=== PATIENT | female | born 2000 | race Caucasian/White ===

== ENCOUNTER 2022-06-25 21:16 | Inpatient (IN) | payer OTHER, SELFPAY ==
[2022-06-25 23:30] VITALS: BP 132/82; PULSE 82; TEMP 36.7; O2SAT 96
--- NOTE | 2022-06-26 00:46 | PC.ADMIT ---
pt is a 22 year old female admitted to [facility] with a suicide attempt with pills with increased depression and AH. pt denies symptoms except for SI. during admission, pt was thought blocking and she had trouble answering questions. pt said she felt dizzy until she ate a sandwich and drank water. pt had normal vital signs. pt was social in kitchen with a few peers. pt reported no substance abuse, but according to [facility] packet, pt used THC. pt is calm and cooperative.
[2022-06-26 09:26] LABS: Estimated Average Glucose 140 mg/dL; Hemoglobin A1c % 6.5 %
[2022-06-26 09:28] LABS: Cholesterol 192 mg/dL; HDL Cholesterol 57 mg/dL; LDL Cholesterol Calculated 113 mg/dl; Triglycerides 112 mg/dL
[2022-06-26 10:15] VITALS: BP 111/71; PULSE 64; RESP 6; TEMP 36.8; O2SAT 97
--- NOTE | 2022-06-26 13:04 | HO.PM.IMCN ---
History of Present Illness Data of Consult Service Date: 06/26/22 Requesting physician: Marcelo Nuno Primary Care Provider: Unknown Physician HPI Reason for consult: medical H&P 22 year old female with history of depression and anxiety admitted to psychiatry with consult placed to hospital service for medical H&P. The patient denies any chronic medical illness. However, A1c on arrival is 6.5%, consistent with newly diagnosed type 2 diabetes. She does endorse some positional lightheadedness. has been drinking plenty of water. No other complaints. Review of Systems Review of Systems: General: No fevers, malaise, unintentional weight loss HEENT: No blurred vision, diplopia Cardiovascular: No chest pain, palpitations, or leg edema Respiratory: No shortness of breath, wheezing, cough GI: No abdominal pain, nausea, vomiting, diarrhea, constipation, melena, hematochezia : No dysuria, hematuria, increased urinary frequency, decreased urinary output Endo: No polyuria or polydipsia MSK: No myalgia, back pain Neuro: +positional lightheadedness. No headaches, weakness, paresthesias Skin: No rashes or lesions [facility] Medical History (Updated 06/26/22 @ 13:09 by COLLEEN Hernandez) Anxiety Depression Type 2 diabetes mellitus Social History Household Members: Family Housing: Apartment Patient Tobacco Use Status: Never used Tobacco Use of substances other than those prescribed or required for medical reasons: Yes Substance Use Type: Marijuana Substance Use Frequency: Daily Last Used Substance: Just Prior to Admission Currently Displaying Signs/Symptoms of Drug Intoxication Withdrawal: No Have you been hit, kicked, punched, or otherwise hurt by someone within the past year? If so, by whom?: No Do you feel safe in your current relationship?: No Current Relationship Is there a partner from a previous relationship who is making you feel unsafe now?: No Are you made to feel afraid or neglected: No Advance Directives: No Advance Directives Information Provided: No Do you have thoughts of harming others: None Do you have a plan to hurt others: No Plan Recently lost weight without trying: No How much weight loss: Not applicable Eating poorly because of decreased appetite: No Nutrition screen score: 0 Nutrition Risks: No Nutritional Risk Patient : No : No Poor oral hygiene: No Meds Allergies Allergy/AdvReac Type Severity Reaction Status Date / Time No Known Allergies Allergy Verified 06/25/22 23:25 Active Medications: Current Medications Acetaminophen (Acetaminophen 325 Mg Tablet) 650 mg PO Q6H PRN PRN Reason: Headache/Pain Mild Scale (1-3) Al Hydroxide/Mg Hydroxide (Magnesium Hydrox/Alum Hydrox 30 Ml Oral.Susp) 30 ml PO Q6H PRN PRN Reason: Heartburn/Nausea Hydroxyzine HCl (Hydroxyzine Hcl 25 Mg Tablet) 25 mg PO Q6H PRN PRN Reason: Anxiety Magnesium Hydroxide (Milk Of Magnesia 30 Ml Oral.Susp) 30 ml PO DAILY PRN PRN Reason: Constipation Nicotine (Nicotine 21 Mg Patch.Td24) 21 mg TRANSDERMA DAILY PRN PRN Reason: smoking cessation Nicotine Polacrilex (Nicotine Polacrilex 2 Mg Gum) 4 mg BUCCAL Q2H PRN PRN Reason: Nicotine Cravings Trazodone HCl (Trazodone Hcl 50 Mg Tablet) 50 mg PO BEDTIME PRN PRN Reason: Insomnia Physical Exam Vital Signs and Narrative: Vital Signs: Last Vital Signs Temp 98.2 F 06/26/22 10:15 Pulse 64 06/26/22 10:15 Resp 6 L 06/26/22 10:15 BP 111/71 06/26/22 10:15 Pulse Ox 97 06/26/22 10:15 O2 Del Method 06/26/22 10:15 Constitutional - Awake and Alert, No apparent distress Eyes - PERRLA, EOMI Cardiovascular - S1S2, RRR, No edema Respiratory - Normal lung expansion, Normal respiratory effort, No respiratory distress, CTA bilaterally Gastrointestinal - NT / ND; +BS; No rebound or guarding Extremities - no calf tenderness bilaterally, no swelling Musculoskeletal - Normal inspection, normal ROM Skin - Warm/Dry Neurological - Alert & oriented x3, CN II-XII in tact, 5/5 strength BUE and BLE Psychological - Appropriate affect Results Labs Labs: Laboratory Results - last 24 hr 06/26/22 06/26/22 08:22 08:22 Estimat Average Glucose 140 Hemoglobin A1c % 6.5 Triglycerides 112 Cholesterol 192 LDL Cholesterol, Calc 113 HDL Cholesterol 57 Assessment and Plan (1) Routine medical exam: Status: Acute (2) Type 2 diabetes mellitus: Status: Acute Plan 22 year old female with history of depression and anxiety admitted to psychiatry with consult placed to hospital service for medical H&P. #Depression/anxiety -Plan per psychiatry #Newly diagnosed type 2 diabetes- controlled with A1c 6.5% -POC glucose -Diabetic diet -Recommend diabetes education -Would recommend lifestyle education and modification prior to initiating any oral DM meds -Can use humalog on sliding scale with meals if needed for hyperglycemia -Needs close outpt follow up with pcp #Positional lightheadedness -no nystagmus or focal neuro deficits -Recommend orthostatic VS -Encourage adequate fluids intake and manage glucose levels as above #Obesity -Recommend weight loss efforts Thank you for allowing me to participate in this consult. Signing off at this time. Please do not hesitate to call for further questions. Time Spent With Patient Time: Total time managing care of this patient today ____ minutes.
[2022-06-26 16:19] VITALS: BP 95/54; PULSE 62; TEMP 36.6; O2SAT 96
[2022-06-26] MEDS: hydrOXYzine HCL 25 MG TABLET PO (17:37)
[2022-06-26 17:56] LABS: Glucose, Whole Blood 171 mg/dL (60-115)
[2022-06-26] MEDS: Insulin Lispro 100 UNIT/ML 3 ML VIAL SUBCUT (17:58)
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
[2022-06-26 21:35] LABS: Glucose, Whole Blood 148 mg/dL (60-115)
[2022-06-27 07:00] VITALS: BMI 36.8
[2022-06-27 08:34] LABS: Glucose, Whole Blood 126 mg/dL (60-115)
[2022-06-27 09:50] VITALS: BP 113/69; PULSE 66; RESP 16; TEMP 36.9; O2SAT 97
[2022-06-27 13:23] LABS: Glucose, Whole Blood 128 mg/dL (60-115)
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
[2022-06-27 17:39] LABS: Glucose, Whole Blood 138 mg/dL (60-115)
[2022-06-27] MEDS: hydrOXYzine HCL 25 MG TABLET PO (17:43)
[2022-06-27 18:00] VITALS: BP 114/78; PULSE 61; TEMP 36.1; O2SAT 97
[2022-06-27] MEDS: Sertraline HCL 50 MG TABLET PO (21:31)
[2022-06-27 21:50] LABS: Glucose, Whole Blood 143 mg/dL (60-115)
[2022-06-28 08:02] LABS: Glucose, Whole Blood 131 mg/dL (60-115)
[2022-06-28] MEDS: ARIPiprazole 5 MG TABLET PO (08:21)
[2022-06-28 08:23] VITALS: BP 119/72; PULSE 57; RESP 18
[2022-06-28 12:11] LABS: Glucose, Whole Blood 141 mg/dL (60-115)
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
[2022-06-28] MEDS: Magnesium Hydrox/Alum Hydrox 30 ML ORAL.SUSP PO (15:03)
[2022-06-28 16:34] LABS: Glucose, Whole Blood 160 mg/dL (60-115)
[2022-06-28] MEDS: Insulin Lispro 100 UNIT/ML 3 ML VIAL SUBCUT (16:46)
[2022-06-28] MEDS: Sertraline HCL 50 MG TABLET PO (19:03)
[2022-06-28 19:31] VITALS: BP 121/76; PULSE 75; TEMP 36.1
[2022-06-28 20:20] LABS: Glucose, Whole Blood 150 mg/dL (60-115)
[2022-06-29 08:21] LABS: Glucose, Whole Blood 127 mg/dL (60-115)
[2022-06-29 08:46] VITALS: BP 113/72; PULSE 65; RESP 16; TEMP 36.5; O2SAT 96
[2022-06-29] MEDS: ARIPiprazole 5 MG TABLET PO (09:38)
[2022-06-29 12:43] LABS: Glucose, Whole Blood 141 mg/dL (60-115)
[2022-06-29 16:41] LABS: Glucose, Whole Blood 175 mg/dL (60-115)
[2022-06-29 17:20] VITALS: BP 146/61; PULSE 72; RESP 18; TEMP 36.5; O2SAT 97
[2022-06-29] MEDS: Insulin Lispro 100 UNIT/ML 3 ML VIAL SUBCUT (17:33)
[2022-06-29 17:34] LABS: Glucose, Whole Blood 176 mg/dL (60-115)
[2022-06-29] MEDS: Sertraline HCL 50 MG TABLET PO (17:48)
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
[2022-06-29] MEDS: Acetaminophen 325 MG TABLET 650 MG PO (19:32)
[2022-06-29 21:18] LABS: Glucose, Whole Blood 166 mg/dL (60-115)
[2022-06-30 08:39] LABS: Glucose, Whole Blood 117 mg/dL (60-115)
[2022-06-30 08:47] VITALS: BP 116/68; PULSE 79; RESP 16; TEMP 36.7; O2SAT 96
[2022-06-30] MEDS: ARIPiprazole 5 MG TABLET PO (09:22)
[2022-06-30 09:34] LABS: TSH reflex Free T4 2.65 uIU/mL (0.32-4.0)
[2022-06-30 17:10] LABS: Glucose, Whole Blood 183 mg/dL (60-115)
[2022-06-30] MEDS: Insulin Lispro 100 UNIT/ML 3 ML VIAL SUBCUT (17:20)
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
[2022-06-30 20:25] VITALS: BP 116/81; PULSE 58; TEMP 36.4
[2022-06-30 20:42] LABS: Glucose, Whole Blood 121 mg/dL (60-115)
[2022-06-30] MEDS: Prazosin HCL 1 MG CAPSULE PO (20:55)
[2022-06-30] MEDS: Sertraline HCL 50 MG TABLET PO (20:55)
[2022-07-01 08:29] LABS: Glucose, Whole Blood 118 mg/dL (60-115)
[2022-07-01] MEDS: ARIPiprazole 5 MG TABLET PO (08:37)
[2022-07-01 10:50] VITALS: BP 113/65; PULSE 84; RESP 16; TEMP 36.3; O2SAT 96
[2022-07-01 12:22] LABS: Glucose, Whole Blood 165 mg/dL (60-115)
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
--- NOTE | 2022-07-01 15:12 | MHC.CLN ---
RE: CONSULT EDUCATED PT ON FOODS THAT AFFECT BLOOD SUGAR, PORTION CONTROL AND INCREASING PHYSICAL ACTIVITY PT'S UNDERSTANDING: GOOD EXPECTED COMPLIANCE: FAIR PT NOT RECEPTIVE TO ADDING PHYSICAL ACTIVITY TO PROMOTE WT LOSS RECOMMEND OUT PATIENT RD DM EDUCATION FOLLOW UP UPON DISCHARGE PT GIVEN HANDOUTS-SEE ALSO TEACHING RECORD
[2022-07-01 16:40] VITALS: BP 126/82; PULSE 78; TEMP 36.1; O2SAT 97
[2022-07-01] MEDS: Sertraline HCL 50 MG TABLET PO (19:28)
[2022-07-01] MEDS: Prazosin HCL 1 MG CAPSULE PO (19:29)
[2022-07-02 06:28] VITALS: BP 117/72; PULSE 71; RESP 16; TEMP 36.9; O2SAT 98
[2022-07-02] MEDS: ARIPiprazole 5 MG TABLET PO (08:24)
[2022-07-02 08:34] LABS: Glucose, Whole Blood 122 mg/dL (60-115)
[2022-07-02] MEDS: hydrOXYzine HCL 25 MG TABLET PO (09:52)
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
[2022-07-02 18:00] VITALS: BP 125/92; PULSE 79; RESP 20; TEMP 36.2; O2SAT 97
[2022-07-02] MEDS: Sertraline HCL 50 MG TABLET PO (18:21)
[2022-07-02] MEDS: Prazosin HCL 1 MG CAPSULE PO (21:47)
[2022-07-03 08:27] VITALS: BP 105/61; PULSE 96; RESP 16; TEMP 36.6; O2SAT 96
[2022-07-03] MEDS: ARIPiprazole 5 MG TABLET PO (08:43)
[2022-07-03 08:54] LABS: Glucose, Whole Blood 115 mg/dL (60-115)
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
[2022-07-03 19:20] VITALS: BP 109/67; PULSE 64; TEMP 36.4
[2022-07-03] MEDS: Sertraline HCL 50 MG TABLET PO (19:23)
[2022-07-03] MEDS: Prazosin HCL 1 MG CAPSULE PO (19:24)
[2022-07-04 07:00] VITALS: BMI 36.6
[2022-07-04 08:21] LABS: Glucose, Whole Blood 118 mg/dL (60-115)
[2022-07-04 08:36] VITALS: BP 97/53; PULSE 59; RESP 16; TEMP 36.5; O2SAT 97
[2022-07-04] MEDS: ARIPiprazole 5 MG TABLET PO (08:59)
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
[2022-07-04 17:46] VITALS: BP 109/65; PULSE 91; RESP 15; TEMP 36.3; O2SAT 97
[2022-07-04] MEDS: Prazosin HCL 1 MG CAPSULE PO (20:21)
[2022-07-04] MEDS: Sertraline HCL 50 MG TABLET PO (20:25)
[2022-07-05 08:15] VITALS: BP 129/72; PULSE 80; RESP 17; TEMP 36.2; O2SAT 95
[2022-07-05] MEDS: ARIPiprazole 5 MG TABLET PO (08:28)
--- NOTE | 2022-07-05 16:37 | P.DS_ITS ---
DS: Providers Provider Date of Service: 07/05/22 Date of admission: 06/25/22 21:16 Date of discharge: 07/05/22 Primary care physician: Unknown Physician Admitting clinician: Akanksha Medrano Attending physician on admission: Roderick Bermudez Consults: 06/25/22 23:35 Consult to Hospitalist Routine Consulting Provider: Hospitalist Reason For Exam: admission physical Attending physician on discharge: Roderick Bermudez Discharging clinician: Akanksha Medrano DS: Diagnosis Discharge Diagnosis (1) PTSD (post-traumatic stress disorder): Status: Acute (2) Recurrent major depression-severe: Status: Acute DS: Medications Discharge Medications Home Medications: Previous Rx's Medication Instructions Recorded aripiprazole 5 mg tablet (Abilify) 5 mg PO DAILY #30 tabs 07/04/22 prazosin 1 mg capsule 1 mg PO BEDTIME #30 caps 07/04/22 sertraline 50 mg tablet 50 mg PO 1900 #30 tabs 07/04/22 trazodone 50 mg tablet 50 mg PO BEDTIME PRN Insomnia #30 07/04/22 tabs Mental Status Exam Mental Status Exam Patient Appearance: Appropriate Patient Orientation: Person, Place, Time and Situation Level of Consciousness: Alert Patient Behavior: Appropriate, Talkative, Cooperative, Distractible and Good Eye Contact Mood Description: Cheerful Affect Description: Appropriate Patient Cognition Impaired: Yes Ability to Follow Directions: Fair Speech Pattern: Spontaneous Speech Memory Description: Intact Hallucinations: Auditory (denies) Delusions: Not Present Perceptual Disturbances: Depersonalization Thought Process: Rumination Thought Content: positive for Circumstantial, positive for Perseveration, positive for Slowed Thinking and positive for Suicidal Ideation (denies today) Depressive Symptoms: Sleeping More Than Usual, Unhappiness, Thoughts of /Suicide (denies today), Low Self Esteem and Difficulty Concentrating Judgement: Fair Data Data Completed and Pending Completed studies during hospitalization [Text1]: 06/28/22 06/29/22 06/29/22 20:16 08:17 12:38 POC Glucose 150 H 127 H 141 H TSH 06/29/22 06/29/22 06/29/22 16:38 17:30 21:13 POC Glucose 175 H 176 H 166 H TSH 06/30/22 06/30/22 06/30/22 08:26 08:33 17:04 POC Glucose 117 H 183 H TSH 2.65 06/30/22 07/01/22 07/01/22 20:37 08:24 12:18 POC Glucose 121 H 118 H 165 H TSH 07/02/22 07/03/22 07/04/22 08:22 08:50 08:16 POC Glucose 122 H 115 118 H TSH DS: Summary Hospital Course Hospital Course: Admission to adult psychiatry s/p overdose of atarax. Pt did not inform family of overdose. She attended school the following day and informed her teacher of the overdose. Family reports a recent admission for similiar sx. Sertraline was titrated. Abilify, Prazosin and Trazodone were added. Pt was referred for out patient services. Connection was made with DDS to initiate community services and extra support for Lisa. Pt has involved supportive parents who are willing to assist her upon discharge. She will live with her mother and has regular visitiation with her father, step mother and brother. During admission she r eceived a new diagnosis of diabetes. She will follow up with her primary care physician and her mother will make this appointment and accompany her. Time spent discussing smoking cessation with patient: 3 to 10 minutes Status at Discharge Functional status at discharge: independent ambulation Overall status at discharge: patient is back to baseline Time Spent with Patient Time attestation: Total time managing care of this patient today 35 minutes. Time spent: Greater than 30 minutes Discharge Plan Discharge Anticipated Discharge Date/Time: 07/05/22 11:11 Patient Disposition: Home, Self-Care Discharge Diagnosis: PTSD Recurrent Major Depression, Severe DM Developmental Disability Referrals: Department of Developmental Services (DDS) [Other] - 1 Week (Patient's assigned DDS adult protective caseworker. Patient and family may contact adult protective caseworker following discharge from [facility]) [Other] - 07/05/22 2:00 pm (Initial Intake Appointment with Clinician at [facility] Appointment is by tele-health (video) and a text with link will be set to Shad ([employer]) phone at 2:00 pm. Patient or family member will need to update Lisa's phone number with [facility] after discharge and should call [phone]. Patient will require medication management and therapy services and father should aid patient in advocating for services at initial intake.) [facility] [Other] - 1 Week (OFFICE WILL CALL PT. WITH F/U APPT.) Discharge Medications: New trazodone 50 mg Tablet 50 mg PO BEDTIME PRN (Reason: Insomnia) Qty: 30 0RF prazosin 1 mg Capsule 1 mg PO BEDTIME Qty: 30 0RF Protocol: Hold for SBP< HOLD for SBP < : 90 sertraline 50 mg Tablet 50 mg PO 1900 Qty: 30 0RF aripiprazole [Abilify] 5 mg Tablet 5 mg PO DAILY Qty: 30 0RF Discharge Orders: Discharge Order (Routine); Ordered 07/05/22 Ordered By: Akanksha Medrano Diet: Diabetic diet Activity on Discharge: As tolerated Stand Alone Forms: Patient Portal Discharge page, Community Support Care Plan Goals: Maintain mood and safe behaviors Take medications as directed Practice coping skills Follow up with PCP for new diagnosis of diabetes. Your mom will make this appointment for you. Connect with out patient providers Health Concerns: Stable mood and behaviors Plan of Treatment: Follow up with PCP Follow up with out patient provider appointments Take medications as directed Assessment: Pt interviewed prior to discharge and found to be fully oriented and without S I/HI. Pt has insight and demonstrates good judgment in terms of wanting to pursue treatment. Pt is not in imminent risk of harm to self or others and has a safety plan that includes informing her parents if she is feeling unsafe, presenting to the closest ER or calling 911. Pt has been observed closely by nursing and unit staff throughout admission Pt has not engaged in any behaviors that suggest dangerousness to self or others and has demonstrated appropriate behaviors and impulse control. Discharge Date/Time: 07/05/22 11:15
== END 2022-07-05 11:15 | disposition home or self-care (01) | DRG 751 ==
PROVIDERS: Admitting Provider Psychiatry & Neurology Psychiatry; Visit Provider Clinical Nurse Specialist Psychiatric/Mental Health, Adult
DX: F33.2 Major depressive disorder, recurrent severe without psychotic features (principal); R45.851 Suicidal ideations; E11.9 Type 2 diabetes mellitus without complications; F43.10 Post-traumatic stress disorder, unspecified; E66.9 Obesity, unspecified; R62.50 Unspecified lack of expected normal physiological development in childhood; Z79.899 Other long term (current) drug therapy
CPT/HCPCS: 36415; 80061; 82947; 83036; 84443